=== PATIENT | male | born 1975 | race Caucasian/White ===

== ENCOUNTER 2016-11-09 05:21 | Day surgery (SDC) | payer OTHER ==
[2016-11-09] MEDS ORDERED: LR 1,000 ML IV ONE (06:08)
[2016-11-09] MEDS ORDERED: LIDOCAINE 1% 5 ML SDV ID PRN (06:08)
[2016-11-09] MEDS ORDERED: PROPOFOL 200 MG/20 ML VIAL ONE ×2 (06:57)
[2016-11-09] MEDS ORDERED: fentaNYL 100 MCG/2 ML INJ ONE ×3 (06:57→09:57)
[2016-11-09] MEDS ORDERED: LIDOCAINE 2% 100 MG/5 ML SYR ONE (06:58)
[2016-11-09] MEDS ORDERED: oxyCODONE IR 5 MG TAB PO PRN (07:04)
[2016-11-09] MEDS ORDERED: BUPIVACAINE 0.5% 30 ML SDV ONE (07:05)
[2016-11-09] MEDS ORDERED: LIDOCAINE 1% 300 MG/30 ML SDV ONE (07:05)
[2016-11-09] MEDS ORDERED: POLYMYXIN B SULFATE 500,000 UNIT/10 ML SYR IRR ONE (07:06)
[2016-11-09] MEDS ORDERED: BACITRACIN 50,000 UNITS/10 ML SYR IRR ONE (07:06)
[2016-11-09] MEDS ORDERED: MIDAZOLAM 2 MG/2 ML VIAL ONE (07:19)
[2016-11-09] MEDS ORDERED: ceFAZolin 2 GM/DEXTROSE 100 ML IV ONE (07:30)
[2016-11-09] MEDS ORDERED: clonIDINE 1 MG/10 ML VIAL EP ONE (08:59)
[2016-11-09] MEDS ORDERED: ROPIVACAINE HCL 150 MG/30 ML INJ ONE (08:59)
[2016-11-09] MEDS ORDERED: HYDROmorphONE/DILAUDID 1 MG/ML SYR ONE (09:57)
--- NOTE | 2016-11-09 15:22 | GOP ---
[f rep st] OPERATIVE REPORT PATIENT: MICHELLE ARMENTA DATE OF SERVICE: 11/09/16 PATIENT DATE OF : 01/01/1966 SURGEON: Esa Meng M.D. HYPO SPLASHER: Glo Rivas PA-C Mrs. Arguelles assistance was medically necessary for patient positioning and the retraction of vital structures. ANESTHESIA: General / regional anesthesia by surgeon PRE-OPERATIVE DIAGNOSES: Right distal biceps tendon rupture (ICD-10 code M66.829 Distal biceps tendon rupture) POST-OPERATIVE DIAGNOSES: Right distal biceps tendon rupture (ICD-10 code M66.829 Distal biceps tendon rupture) OPERATIVE PROCEDURES: CPT code 90155 -- Reinsertion of a ruptured biceps tendon CPT code 56219 Radical excision of synovium, biceps tendon sheath CPT code 21428 Debridement of fasica, muscle, and bone, first 20 square cm or less CPT code 02611 Lateral antebrachial cutaneous nerve neuroplasty CPT code 71900 Superficial branch of the radial sensory nerve neuroplasty CPT code 84012 -- Fluoroscopy by surgeon up to one hour CPT code 07174 -- Application of a long arm splint Modifier 47 -- Regional anesthesia by surgeon EBL: 1cc COMPLICATIONS: None TOURNIQUET TIME: 100 minutes at 250 mmHg IMPLANTS: Arthrex biceps button with #2 Fiber Wire BRIEF CLINICAL NOTE: This is a very pleasant 40 year old male with a significant history for a complete right distal biceps tendon rupture. As such , I have discussed the risks, benefits, alternatives, and complications associated with both non-operative (specifically, observation) and operative ( specifically, right distal biceps tendon repair and/or reconstruction) forms of treatment. The patient fully understood the risks, benefits, alternatives, and complications associated with both forms of treatment and wished to proceed with operative intervention as outlined above. The patient has signed the informed consent form for surgery. OPERATIVE NOTE: On the day of surgery, all of the patients questions were answered. The patient was then transferred from the pre-operative area into the operating room and a formal, Time-Out procedure was performed. The patient was identified by name, medical record number, social security number, and date of . In addition, the patients right upper extremity was identified as the correct portion of the patients body for surgery with the patients right elbow being identified as the correct portion of that extremity for surgery. The anesthesia team administered pre-operative antibiotics for prophylaxis. The brachium was then padded with webril and tourniquet was applied. The extremity was then prepped and draped in the normal sterile fashion. A sterile marking pen was then utilized to terrance out an S-shaped incision overlying the antecubital fossa. An Esmarch was then utilized to exsanguinate the right upper extremity and the tourniquet was insufflated to 250 mmHg. The incision was then made with a #15 blade. Meticulous hemostasis was obtained in the subcutaneous plane with bipolar cautery. The lateral antebrachial cutaneous nerve was identified and protected. The lateral antebrachial cutaneous nerve was carefully released from the surrounding soft tissue and moved into a more radial position (neuroplasty) to protect it during the approach. The interval between the brachioradialis and the pronator teres was developed with careful dissection. The brachial, radial, and ulnar arteries were identified and protected throughout the procedure. In addition, the superficial branch of the radial nerve and the median nerve were also identified and protected during the procedure. The superficial branch of the radial sensory nerve was carefully released from the surrounding soft tissue and moved into a more radial position (neuroplasty) to protect it during the approach. The distal biceps tendon sheath was then traced to the radial tuberosity. The radial tuberosity was then sharply surgically debrided. The distal biceps tendon was then identified proximal to the antecubital fossa embedded in significant scar tissue. The biceps tendon was carefully released from the surrounding scar tissue (tenolysis) and then sharply surgically debrided of all synovium to perform a radical synovectomy of the distal sheath. Next, a running, locking Krackow stitch was placed in the tendon with a #2 FiberWire. The 3.2-mm drill bit was then utilized to drill a bi-cortical tunnel starting at the radial tuberosity along the ulnar aspect of the proximal radius and heading distally and in a radial direction. The position of the tunnel was confirmed with intraoperative C-arm fluoroscopy in both the PA and lateral planes. Next, a 4.0 mm round berny was utilized to de-corticate the radial tuberosity surrounding the tunnel. The #2 Fiber Wire which had already been threaded through the distal biceps tendon was passed through a 2.6 mm Arthrex biceps button. The biceps button was then inserted through the previously drilled tunnel. The button was then flipped on the far side of the far cortex. The biceps tendon was then brought back down onto the bone of the radial tuberosity. Once the biceps tendon was held snugly against the surface of the radial tuberosity, the sutures were tied while holding the elbow in approximately 40 degrees of flexion to prevent undue tension on the repair. Meticulous hemostasis was obtained through wound and then the wound was copiously irrigated with sterile normal saline. The subcutaneous plane was re- approximated utilizing 3-0 Vicryl sutures and the skin was re-approximated utilizing a running 4-0 Monocryl subcuticular stitch. Dermabond was then applied to the skin. Next, a mixture of 1% lidocaine and 0.5% Marcaine was then utilized to perform a regional block of the operative site. A Xeroform gauze dressing was then applied followed by a dry sterile dressing and a posterior long-arm splint maintaining the elbow at 90 degrees of flexion. Once the splint was completely in place, the tourniquet was deflated. After complete deflation of the tourniquet, all fingers and the thumb demonstrated brisk capillary refill. The patient was then reversed from anesthesia and transferred from the operating room table to the postoperative gurney and transferred from the operating room to the post-anesthesia care unit in stable condition. POSTOPERATIVE PLAN: The patient will remain in the current splint for the next 2 weeks. I will see the patient back in the office in 2 weeks at which point the splint will be removed, and the patient will be started on a course of gentle elbow and forearm ROM. /[id number]/MODL MTDD
== END 2016-11-09 12:10 | disposition home or self-care (01) ==
LOC: FSGY 05:21
PROVIDERS: ATTEND Orthopaedic Surgery Hand Surgery
PROC: 0LX30ZZ Transfer Right Upper Arm Tendon, Open Approach (ICD-10-PCS; principal; 2016-11-09 07:15)
PROC: 0LB50ZZ Excision of Right Lower Arm and Wrist Tendon, Open Approach (ICD-10-PCS; principal; 2016-11-09 07:15)
DX: M66.821 Spontaneous rupture of other tendons, right upper arm (principal); K21.9 Gastro-esophageal reflux disease without esophagitis
CPT/HCPCS: 24342; 25115; C1769; C1713; J0690; J0735; J1170; J2001; J2250; J2704; J2795; J3010